=== PATIENT | female | born 2000 | race Caucasian/White ===

== ENCOUNTER 2023-07-24 13:17 | Emergency (ER) | payer OTHER, SELFPAY ==
[2023-07-24 13:21] VITALS: BP 145/101; PULSE 120; RESP 18; TEMP 36.4; O2SAT 98; BMI 45.2
--- NOTE | 2023-07-24 13:31 | CT_ITS ---
The [address] [address] Patient Name: EDUARDO HOLLIS MRN: [id number] date: 2000 Sex: F Assigned Patient Location: ER Current Patient Location: ER Accession/Order Number: [id number] Exam Date: 07/24/2023 13:53 Report Date: 07/24/2023 14:10 At the request of: SEE HESS Procedure: CT abdomen pelvis wo con CT abdomen pelvis wo con, 07/24/2023 1:53 PM EST INDICATION: Abdominal pain. UTI symptoms x3 weeks COMPARISON: No prior CT scan of the abdomen and pelvis available for comparison at the time of this dictation. TECHNIQUE: Axial images of the abdomen and pelvis were obtained without IV contrast. Multiplanar reformatted images were generated and reviewed as needed. Dose reduction techniques were achieved by using automated exposure control and/or adjustment of mA and/or kV according to patient size and/or use of iterative reconstruction technique. FINDINGS: No consolidation or effusion. The liver, gallbladder, pancreas, spleen and adrenals are unremarkable on a noncontrast scan. No hydronephrosis or nephrolithiasis. No ureteral or urinary bladder calculi. Uterus and adnexa are grossly unremarkable on a noncontrast scan. No aortic aneurysm. No bowel obstruction or acute focal inflammation. Appendectomy. No pneumatosis, pneumoperitoneum or ascites. No mesenteric or retroperitoneal lymphadenopathy. No acute fracture. CT/CT abdomen pelvis wo con IMPRESSION: No acute findings. Electronically authenticated by: BRENNAN ADAMS Date: 07/24/2023 14:10
--- NOTE | 2023-07-24 13:34 | ED_ITS ---
HPI - Female Genitourinary General Chief complaint: Urogenital-Female Stated complaint: UTI SYMPTOMS Time Seen by Provider: 07/24/23 13:19 Source: patient Mode of arrival: walk-in History of Present Illness HPI Narrative: Patient is a 23-year-old female who presents to the emergency department for continued pelvic pain and urinary symptoms. She was seen by her PCP on 07/18 and had a urine dip that was positive for UTI, she states she was prescribed Keflex and has 1 more day of this medication. She reports continued significant urinary urgency, burning with urination and pelvic pain. She has had no vaginal bleeding or discharge. She has had no objective fevers. She reports nausea. She went to [facility]'s emergency department this morning and states she had a repeat urine test performed and was prescribed Macrobid which she has not started yet. She came to this emergency department because she was unhappy with her care and states she is still having severe pain. She denies flank or back pain. No concern for . Related Data Home Medications Medication Instructions Recorded Confirmed cephalexin 500 mg capsule 500 mg PO QAM 07/24/23 07/24/23 nitrofurantoin 100 mg PO Q12H 07/24/23 07/24/23 monohydrate/macrocrystals 100 mg capsule Previous Rx's Medication Instructions Recorded ketorolac 10 mg tablet 10 mg PO TID PRN pain #10 tabs 07/24/23 ondansetron 4 mg disintegrating 4 mg PO Q6H PRN nausea and 07/24/23 tablet vomiting #12 tabs phenazopyridine 200 mg tablet 200 mg PO Q8H 2 days #6 tabs 07/24/23 (Pyridium) Allergies Allergy/AdvReac Type Severity Reaction Status Date / Time No Known Drug Allergies Allergy Verified 07/24/23 13:24 Review of Systems ROS Constitutional Denies: fever or chills Ears, nose, mouth, and throat Denies: throat pain or nasal congestion Cardiovascular Denies: chest pain Respiratory Denies: shortness of breath or cough Gastrointestinal Reports: abdominal pain and nausea; Denies: vomiting or diarrhea Genitourinary Reports: painful urination, urinary urgency and pelvic pain; Denies: blood in urine, vaginal bleeding or vaginal discharge Musculoskeletal Denies: back pain Integumentary/Breast Denies: rash Neurological Denies: headache Hematologic/Lymphatic Denies: easy bruising or easy bleeding Exam Narrative Exam Narrative: Gen.: Awake, alert, in no distress Head: Normocephalic, atraumatic ENT: Moist mucous membranes Respiratory: No respiratory distress Cardio: Tachycardia Gastrointestinal: Abdomen is soft, nondistended and nontender to palpation; No CVA tenderness or flank tenderness Extremities: Moves extremities equally Psych: Normal mood and affect Neuro: No focal neuro deficit Skin: Warm, dry, intact Constitutional Vital Signs, click to edit/add: Last Vital Signs Temp 97.6 F 07/24/23 13:21 Pulse 86 07/24/23 14:25 Resp 18 07/24/23 14:25 BP 143/83 H 07/24/23 14:25 Pulse Ox 99 07/24/23 14:25 Course Vital Signs Vital signs: Vital Signs Temperature 97.6 F 07/24/23 13:21 Pulse Rate 120 H 07/24/23 13:21 Respiratory Rate 18 07/24/23 13:21 Blood Pressure 145/101 H 07/24/23 13:21 Pulse Oximetry 98 07/24/23 13:21 Temperature 97.6 F 07/24/23 13:21 Pulse Rate 86 07/24/23 14:25 Respiratory Rate 18 07/24/23 14:25 Blood Pressure 143/83 H 07/24/23 14:25 Pulse Oximetry 99 07/24/23 14:25 MDM - Female Genitourinary MDM Narrative Medical decision making narrative: Patient with a negative test, normal urine specimen, unremarkable lab studies. She has no evidence of sepsis, vital signs have normalized after IV fluids, Toradol, Pyridium, Zofran in the ER. CT of the abdomen and pelvis performed due to the patient's continued pain and multiple visits. This shows no evidence of acute abnormalities. Patient was encouraged not to take the Macrobid that was prescribed today, we will treat for cystitis while GC and chlamydia cultures are pending. She is placed on Toradol, Zofran, Pyridium for home. Follow-up with [facility] and return to the ER if symptoms change or worsen. Medical Records Attestation: I reviewed the patient's medical records. Lab Data Attestation: I reviewed the patient's lab results. Labs: Lab Results 07/24/23 07/24/23 Range/Units 13:29 13:43 WBC 11.0 (4.0-11.0) 10^3/uL RBC 5.03 (4.20-5.40) 10^6/uL Hgb 14.1 (12.0-16.0) g/dL Hct 43.4 (36.0-48.0) % MCV 86.3 (81.0-99.0) fL MCH 28.0 (26.7-34.0) pg MCHC 32.5 (29.9-35.2) g/dL RDW 12.8 (11.0-15.0) % Plt Count 362 (150-450) 10^3/uL MPV 9.7 (9.5-13.5) fL Neut % (Auto) 65.7 (43.0-75.0) % Lymph % (Auto) 27.0 (20.5-60.0) % Waller % (Auto) 5.4 (1.7-12.0) % Eos % (Auto) 1.1 (0.9-7.0) % Baso % (Auto) 0.4 (0.2-2.0) % Neut # (Auto) 7.2 H (1.4-6.5) 10^3/uL Lymph # (Auto) 3.0 (1.2-3.8) 10^3/uL Waller # (Auto) 0.6 (0.3-0.8) 10^3/uL Eos # (Auto) 0.1 (0.0-0.7) 10^3/uL Baso # (Auto) 0.0 (0.0-0.1) 10^3/uL Abs Immat Gran (auto) 0.04 H (0.00-0.03) 10^3/uL Imm/Tot Granulo (auto) 0.4 (0.0-0.5) % Sodium 135 L (136-145) mmol/L Potassium 3.6 (3.5-5.1) mmol/L Chloride 102 (98-107) mmol/L Carbon Dioxide 24.9 (21.0-32.0) mmol/L Anion Gap 11.7 BUN 10.0 (7.0-18.0) mg/dL Creatinine 0.87 (0.55-1.02) mg/dL Est GFR ( Amer) >60 (>=60) Est GFR (Non-Af Amer) >60 (>=60) BUN/Creatinine Ratio 11.5 Glucose 91 (74-106) mg/dL Lactate 1.9 (0.4-2.0) mmol/L Calcium 9.1 (8.5-10.1) mg/dL Total Bilirubin 0.2 (0.2-1.0) mg/dL AST 13 L (15-37) U/L ALT 18 (14-59) U/L Alkaline Phosphatase 109 (46-116) U/L Total Protein 7.7 (6.4-8.2) g/dL Albumin 3.1 L (3.4-5.0) g/dL Globulin 4.6 g/dL Albumin/Globulin Ratio 0.7 Urine Color Yellow (YELLOW) Urine Clarity Clear (CLEAR) Urine pH 7.0 (5.0-9.0) Ur Specific [place] 1.020 (1.005-1.025) Urine Protein Negative (NEG/TRACE) mg/dL Urine Glucose (UA) Negative (NEGATIVE) mg/dL Urine Ketones Negative (NEGATIVE) mg/dL Urine Occult Blood Negative (NEGATIVE) Urine Nitrite Negative (NEGATIVE) Urine Bilirubin Negative (NEGATIVE) Urine Urobilinogen 0.2 (0.2-1.0) EU/dL Ur Leukocyte Esterase Negative (NEGATIVE) Urine HCG, Qual Negative (NEGATIVE) Imaging Data CT scan - abdomen: Attestation: I have reviewed the pertinent imaging results. Radiologist's impression: ITS Impressions Abdomen/Pelvis CT 07/24/23 13:31 IMPRESSION: No acute findings. Electronically authenticated by: BRENNAN ADAMS Date: 07/24/2023 14:10 Discharge Plan Discharge Chief Complaint: Urogenital-Female Clinical Impression: Cystitis Patient Disposition: Home, Self-Care Time of Disposition Decision: 14:28 Condition: Good Prescriptions / Home Meds: New phenazopyridine [Pyridium] 200 mg tablet 200 mg PO Q8H 2 Days Qty: 6 0RF ketorolac 10 mg tablet 10 mg PO TID PRN (Reason: pain) Qty: 10 0RF ondansetron 4 mg tablet,disintegrating 4 mg PO Q6H PRN (Reason: nausea and vomiting) Qty: 12 0RF No Action cephalexin 500 mg capsule 500 mg PO QAM nitrofurantoin monohyd/m-cryst 100 mg capsule 100 mg PO Q12H Instructions: Dysuria (ED) Stand Alone Forms: Portal Instructions Referrals: Physician,Non-Staff, MD [Primary Care Provider] - 1 week Discharge Date/Time: 07/24/23 14:37
[2023-07-24 13:35] LABS: Bilirubin Urine NEGATIVE (NEGATIVE); Blood Urine NEGATIVE (NEGATIVE); Clarity Urine CLEAR (CLEAR); Color Urine YELLOW (YELLOW); Glucose Urine UA NEGATIVE (NEGATIVE); Ketones Urine NEGATIVE (NEGATIVE); Leukocyte Esterase Urine NEGATIVE (NEGATIVE); Nitrite Urine NEGATIVE (NEGATIVE); Protein Urine NEGATIVE (NEG/TRACE); Urobilinogen Urine 0.2 EU/dL (0.2-1.0)
[2023-07-24 13:41] LABS: HCG Qualitative Urine* NEGATIVE (NEGATIVE); Urine Microscopic Indicated NO
[2023-07-24] MEDS: 0.9 % SODIUM CHLORIDE 1,000 ML 999 ML IV (13:47)
[2023-07-24] MEDS: KETOROLAC TROMETHAMINE 30 MG/ML VIAL IVP (13:48)
[2023-07-24] MEDS: PHENAZOPYRIDINE 100 MG TABLET 200 MG PO (13:48)
[2023-07-24] MEDS: ONDANSETRON PF 4 MG/2 ML VIAL IV (13:48)
[2023-07-24 14:00] LABS: Basophils Percent Auto 0.4 % (0.2-2.0); Eosinophils Absolute Auto 0.1 10^3/uL (0.0-0.7); Eosinophils Percent Auto 1.1 % (0.9-7.0); Hematocrit 43.4 % (36.0-48.0); Hemoglobin 14.1 g/dL (12.0-16.0); Immature Granulocytes Abs Auto 0.04 10^3/uL (0.00-0.03); Immature Granulocytes Pct Auto 0.4 % (0.0-0.5); Mean Corpuscular HGB Conc 32.5 g/dL (29.9-35.2); Mean Corpuscular Volume 86.3 fL (81.0-99.0); Mean Platelet Volume 9.7 fL (9.5-13.5); Monocytes Absolute Auto 0.6 10^3/uL (0.3-0.8); Monocytes Percent Auto 5.4 % (1.7-12.0); Neutrophils Absolute Auto 7.2 10^3/uL (1.4-6.5); Neutrophils Percent Auto 65.7 % (43.0-75.0); Platelet Count 362 10^3/uL (150-450); Red Blood Count 5.03 10^6/uL (4.20-5.40); Red Cell Distribution Width 12.8 % (11.0-15.0)
[2023-07-24 14:23] LABS: Alanine Aminotransferase 18 U/L (14-59); Albumin Globulin Ratio 0.7; Albumin Level 3.1 g/dL (3.4-5.0); Alkaline Phosphatase 109 U/L (46-116); Anion Gap 11.7; Aspartate Amino Transferase 13 U/L (15-37); BUN Creatinine Ratio 11.5; Bilirubin Total 0.2 mg/dL (0.2-1.0); Calcium 9.1 mg/dL (8.5-10.1); Carbon Dioxide 24.9 mmol/L (21.0-32.0); Chloride 102 mmol/L (98-107); Estimated GFR (African America >60 (>=60); Estimated GFR (Non-African Ame >60 (>=60); Globulin 4.6 g/dL; Glucose 91 mg/dL (74-106); Potassium 3.6 mmol/L (3.5-5.1); Sodium 135 mmol/L (136-145); Total Protein 7.7 g/dL (6.4-8.2)
[2023-07-24 14:25] VITALS: BP 143/83; PULSE 86; RESP 18; O2SAT 99
[2023-07-24 14:25] LABS: Lactate/Lactic Acid 1.9 mmol/L (0.4-2.0)
[2023-07-25 22:07] LABS: Neisseria gonorrhoeae, NAA Negative (Negative)
== END 2023-07-24 14:37 | disposition home or self-care (01) ==
PROVIDERS: Physician Assistant; Emergency Provider Emergency Medicine
DX: N30.90 Cystitis, unspecified without hematuria (principal)
CPT/HCPCS: 36415; 74176; 80053; 81003; 83605; 84703; 85025; 87491; 87591; 96374; 96375; 99284; J1885; J2405